=== PATIENT | female | born 1990 | race Caucasian/White ===

== ENCOUNTER 2021-04-04 15:42 | Emergency (ER) | payer MEDICAID ==
[~2021-04-04] VITALS: Ht 160 cm; Wt 108.9 kg
[2021-04-04 15:45] VITALS: BP_SYST 132
--- NOTE | 2021-04-04 15:45 | NUR ---
BROUGHT BACK TO BED #4 AND TRIAGED. REPORT GIVEN TO ABEL Addendum: 04/04/21 at 1721 by [email or web address] Patient given written and verbal discharge instructions and verbalizes understanding. CHELI GLOVER MD discussed with patient the results and treatment provided. Patient in stable condition. ID arm band removed. Rx of MOTRIN given. Patient educated on pain management and to follow up with PMD. Pain Scale 0. Opportunity for questions provided and answered. Medication side effect fact sheet provided.
[2021-04-04] MEDS ORDERED: IBUP-2018 PO (17:03)
[2021-04-04 17:19] VITALS: BP_SYST 117
== END 2021-04-04 17:19 | disposition home or self-care (01) ==
LOC: SED 15:42
DX: S09.90XA Unspecified injury of head, initial encounter (principal); Z79.899 Other long term (current) drug therapy; W51.XXXA Accidental striking against or bumped into by another person, initial encounter; Y93.89 Activity, other specified; Y92.89 Other specified places as the place of occurrence of the external cause; Y99.8 Other external cause status
CPT/HCPCS: 81025; 99282

== ENCOUNTER 2022-02-12 11:13 | Emergency (ER) | payer MEDICAID ==
[~2022-02-12] VITALS: Ht 160 cm; Wt 111.1 kg
[2022-02-12 11:13] VITALS: BP_SYST 111
[~2022-02-12 11:13] MED LIST: IBUP-2018 PO
[2022-02-12] MEDS ORDERED: KETOROLAC TROMETHAMINE 30 MG VIAL IM ONE (13:00)
[2022-02-12 13:21] LABS: BASOPHILS % (AUTO) 0.7 % (0.0-2.0); EOSINOPHILS # (AUTO) 0.2 K/uL (0.0-0.4); EOSINOPHILS % (AUTO) 3.8 % (0.0-4.0); HEMATOCRIT 37.6 % (36-48); LYMPHOCYTES # (AUTO) 2.5 K/uL (1.0-5.5); LYMPHOCYTES % (AUTO) 45.8 % (20.5-51.5); MEAN CORPUSCULAR VOLUME 83 fL (79.0-98.0); MONOCYTES # (AUTO) 0.4 K/uL (0.0-1.0); MONOCYTES % (AUTO) 6.6 % (1.7-9.3); NEUTROPHILS # (AUTO) 2.4 K/uL (1.8-7.7); NEUTROPHILS % (AUTO) 43.1 % (40.0-70.0); PLATELET COUNT (AUTO) 283 K/uL (130-430); RED BLOOD CELL COUNT(AUTO) 4.56 MIL/uL (4.2-6.2); RED CELL DISTRIBUTION WIDTH 13.7 % (9.0-15.0); WHITE BLOOD COUNT (AUTO) 5.5 K/uL (4.8-10.8)
[2022-02-12 13:44] LABS: ANION GAP 5 (5-15); CALCIUM 9.9 mg/dL (8.4-11.0); CHLORIDE 104 mmol/L (98-107); CREATININE 0.89 mg/dL (0.55-1.30); GLUCOSE 85 mg/dL (70-99); UREA NITROGEN, BLOOD 11 mg/dL (8-21)
[2022-02-12 13:49] LABS: GFR AFRICAN AMERICAN 95 mL/min (>90)
[2022-02-12 13:59] LABS: ALANINE AMINOTRANSFERASE 35 U/L (12-78); ALBUMIN 3.8 g/dL (3.4-4.8); ASPARTATE AMINOTRANSFERASE 20 U/L (10-37); TOTAL BILIRUBIN 0.4 mg/dL (0.0-1.0)
[2022-02-12] MEDS ORDERED: VIS25 PO (14:14)
[2022-02-12 14:55] VITALS: BP_SYST 117
== END 2022-02-12 14:51 | disposition home or self-care (01) ==
LOC: SED 11:13
DX: S50.862A Insect bite (nonvenomous) of left forearm, initial encounter (principal); Z79.899 Other long term (current) drug therapy; W57.XXXA Bitten or stung by nonvenomous insect and other nonvenomous arthropods, initial encounter; Y93.89 Activity, other specified; Y92.89 Other specified places as the place of occurrence of the external cause; Y99.8 Other external cause status
CPT/HCPCS: 99285; 71045; 80053; 85025; 84484; 36415; 93005; 96372; J1885

== ENCOUNTER 2023-07-06 19:05 | Emergency (ER) | payer MEDICAID ==
[~2023-07-06] VITALS: Ht 162.6 cm; Wt 108.9 kg
[~2023-07-06 19:05] MED LIST changes: +VIS25 PO
[2023-07-06 19:20] VITALS: BP_SYST 115; PULSE 91; RESP 18; TEMP 97.1; O2SAT 100
[2023-07-06 20:11] LABS: BILIRUBIN,URINE NEGATIVE (NEGATIVE); CLARITY/URINE CLEAR (CLEAR); COLOR,URINE YELLOW (YELLOW); GLUCOSE,URINE NEGATIVE (NEGATIVE); KETONES,URINE TRACE (NEGATIVE); LEUKOCYTE ESTERASE ,URINE NEGATIVE (NEGATIVE); NITRITE, URINE NEGATIVE (NEGATIVE); PROTEIN URINE NEGATIVE (NEGATIVE); UROBILINOGEN,URINE 0.2 (0.2-1.0)
[2023-07-06 20:12] LABS: BLOOD, URINE TRACE (NEGATIVE)
[2023-07-06] MEDS: KETOROLAC TROMETHAMINE 60 MG/2 ML VIAL IM ONE (20:42)
[2023-07-06] MEDS: HYDROcodone/ACETAMIN 5-325 MG TAB (NORCO/ VICODIN) PO ONE (20:42)
[2023-07-06 20:52] LABS: BACTERIA,URINE FEW /HPF (None Seen); WBC,URINE 0-3 /HPF (0-3)
[2023-07-06 20:53] VITALS: BP_SYST 117; PULSE 84; RESP 18; TEMP 98; O2SAT 97
[2023-07-06] MEDS ORDERED: IBUP-1969 PO (21:00)
[2023-07-06] MEDS ORDERED: SOM350 PO (21:00)
== END 2023-07-06 20:53 | disposition home or self-care (01) ==
LOC: SED 19:05
DX: S39.012A Strain of muscle, fascia and tendon of lower back, initial encounter (principal); Z79.899 Other long term (current) drug therapy; X50.0XXA Overexertion from strenuous movement or load, initial encounter; Y93.41 Activity, dancing; Y92.89 Other specified places as the place of occurrence of the external cause; Y99.8 Other external cause status
CPT/HCPCS: 99284; 81001; 72100; 96372; J1885; 81000; 81015

== ENCOUNTER 2023-07-08 16:33 | Emergency (ER) | payer MEDICAID ==
[~2023-07-08] VITALS: Ht 162.6 cm; Wt 108.9 kg
[~2023-07-08 16:33] MED LIST changes: +IBUP-1969 PO; +SOM350 PO
[2023-07-08 16:45] VITALS: BP_SYST 120; PULSE 84; RESP 17; TEMP 97.9; O2SAT 100
[2023-07-08 18:45] LABS: BASOPHILS # (AUTO) 0.1 K/uL (0.0-0.2); EOSINOPHILS # (AUTO) 0.3 K/uL (0.0-0.4); HEMATOCRIT 36.6 % (36-48); HEMOGLOBIN 12.2 g/dL (12.0-16.0); LYMPHOCYTES # (AUTO) 2.8 K/uL (1.0-5.5); LYMPHOCYTES % (AUTO) 38.8 % (20.5-51.5); MEAN CORPUSCULAR HEMOGLOBIN 27 pg (27-31); MEAN CORPUSCULAR HGB CONC 33 % (32-36); MEAN CORPUSCULAR VOLUME 82 fL (79.0-98.0); MONOCYTES # (AUTO) 0.5 K/uL (0.0-1.0); MONOCYTES % (AUTO) 7.1 % (1.7-9.3); NEUTROPHILS # (AUTO) 3.5 K/uL (1.8-7.7); NEUTROPHILS % (AUTO) 49.1 % (40.0-70.0); PLATELET COUNT (AUTO) 310 K/uL (130-430); RED BLOOD CELL COUNT(AUTO) 4.46 MIL/uL (4.2-6.2); RED CELL DISTRIBUTION WIDTH 15.6 % (9.0-15.0); WHITE BLOOD COUNT (AUTO) 7.2 K/uL (4.8-10.8)
[2023-07-08 19:19] LABS: SERUM HCG (QUALITATIVE) NEGATIVE (NEGATIVE)
[2023-07-08 19:28] LABS: PROTHROMBIN TIME 10.1 SECS (9.5-12.5)
[2023-07-08 19:46] LABS: ALBUMIN 3.7 g/dL (3.4-4.8); CALCIUM 8.5 mg/dL (8.4-11.0); CREATININE 0.76 mg/dL (0.55-1.30); TOTAL BILIRUBIN 0.2 mg/dL (0.0-1.0); TOTAL PROTEIN, SERUM 7.5 g/dL (6.4-8.3)
[2023-07-08 19:56] LABS: BILIRUBIN,DIRECT 0.1 mg/dL (0.0-0.3)
[2023-07-08 20:42] LABS: BILIRUBIN,URINE NEGATIVE (NEGATIVE); BLOOD, URINE 1+ (NEGATIVE); CLARITY/URINE CLOUDY (CLEAR); COLOR,URINE YELLOW (YELLOW); GLUCOSE,URINE NEGATIVE (NEGATIVE); KETONES,URINE TRACE (NEGATIVE); LEUKOCYTE ESTERASE ,URINE NEGATIVE (NEGATIVE); NITRITE, URINE NEGATIVE (NEGATIVE); PROTEIN URINE NEGATIVE (NEGATIVE); UROBILINOGEN,URINE 0.2 (0.2-1.0)
[2023-07-08 20:53] LABS: BACTERIA,URINE FEW /HPF (None Seen)
[2023-07-08] MEDS ORDERED: DICL75TA5 PO (21:07)
[2023-07-08] MEDS ORDERED: PRED20TA PO (21:07)
[2023-07-08] MEDS: KETOROLAC TROMETHAMINE 60 MG/2 ML VIAL IM ONE (21:21)
[2023-07-08 21:30] VITALS: BP_SYST 120; PULSE 84; RESP 17; TEMP 97.9; O2SAT 100
== END 2023-07-08 21:30 | disposition home or self-care (01) ==
LOC: SED 16:33
DX: M54.40 Lumbago with sciatica, unspecified side (principal); R79.1 Abnormal coagulation profile; Z79.899 Other long term (current) drug therapy
CPT/HCPCS: 99285; 74176; 80076; 80048; 81001; 82150; 84703; 83690; 85025; 85610; 85730; 36415; 76376; 81025; 96372; 83605; 82397; J1885; 81000; 81015